=== PATIENT | male | born 1935 | race Caucasian/White ===

== ENCOUNTER 2020-09-08 17:11 | Observation (INO) ==
[2020-09-08] MEDS ORDERED: Acetaminophen 325 MG TABLET PO PRN (19:42)
[2020-09-08] MEDS ORDERED: Naloxone 0.4 MG/ML INJ IVP PRN (19:42)
[2020-09-08] MEDS ORDERED: Ondansetron ODT 4 MG TAB.RAPDIS SL PRN (19:42)
[2020-09-08] MEDS ORDERED: Perflutren Lipid Microsphere 1.3 ML in 0.9 % Sodium Chloride 8.7 ML IVP PRN (19:47)
[2020-09-08] MEDS ORDERED: Furosemide 40 MG/4 ML VIAL IVP ONE (19:47)
[2020-09-08] MEDS ORDERED: D5% in Water 1,000 ML IVC PRN (19:49)
[2020-09-08] MEDS ORDERED: *HR* Dextrose 50 % in Water (Vial) 50 ML VIAL IVP PRN (19:49)
[2020-09-08] MEDS ORDERED: Dextrose Gel 15 GM/37.5 ML TUBE PO PRN ×2 (19:49)
[2020-09-08] MEDS: Insulin LISPRO 300 UNITS/3 ML VIAL SUBQ SCH ×2 (21:05)
[2020-09-08 23:39] LABS: Bacteria,Urine Few per hpf (None-Few); Bilirubin,Urine Negative (Negative); Blood,Urine Negative (Negative); Clarity,Urine Clear (Clear); Color,Urine Colorless (Yellow); Glucose,Urine (UA) Normal (Normal); Hyaline Casts,Urine Few per lpf (None Seen); Ketones,Urine Negative (Negative); Leukocyte Esterase,Urine Trace (Negative); Nitrite,Urine Negative (Negative); Protein,Urine Negative (Neg-Trace); RBC,Urine 0-3 per hpf (0-3); Specific Gravity,Urine 1.008 (1.010-1.025); Urobilinogen,Urine Normal (Normal); WBC,Urine 0-3 per hpf (0-3)
[2020-09-09 02:13] LABS: Basophils % 0.2 %; Hematocrit 46.7 % (37.5-50.1); Hemoglobin 14.8 g/dL (12.9-16.9); Immature Granulocytes % 0.9 % (0-4); Lymphocytes # 0.8 K/mcL (0.6-4.6); Lymphocytes % 5.8 %; Mean Corpuscular HGB Conc 31.7 g/dL (31.6-35.5); Mean Corpuscular Hemoglobin 29.1 pg (28.0-33.3); Mean Corpuscular Volume 91.7 fL (83.0-100.0); Mean Platelet Volume 11.3 fL (9.4-12.4); Monocytes # 0.1 K/mcL (0.0-1.3); Monocytes % 0.5 %; Neutrophils # 13.4 K/mcL (1.6-8.9); Platelet Count 178 K/mcL (140-400); Red Blood Count 5.09 M/mcL (4.19-5.50); Red Cell Distribution Width 17.3 % (11.5-14.5); Segmented Neutrophils % 92.6 %; White Blood Count 14.4 K/mcL (4.3-11.1)
[2020-09-09 02:19] LABS: INR 1.2
[2020-09-09 02:27] LABS: Estimated Average Glucose 151 mg/dl; Hemoglobin A1C 6.9 %
[2020-09-09 03:34] LABS: Albumin 3.6 g/dL (3.5-5.7); Albumin/Globulin Ratio 1.1 (1.1-2.2); Bilirubin,Total 0.9 mg/dL (0.3-1.0); Chol/HDL Ratio 2.7 (0-4.9); Globulin 3.2 g/dL (2.4-3.5); Magnesium 2.2 mg/dL (1.6-2.6); Phosphorous 5.3 mg/dL (2.7-4.5); Potassium 4.8 mEq/L (3.5-5.1); Thyroid Stimulating Hormone 1.08 mcIU/mL (0.340-5.600); Total Protein 6.8 g/dL (6.4-8.9)
[2020-09-09] MEDS: Insulin LISPRO 300 UNITS/3 ML VIAL SUBQ SCH ×4 (07:42→20:23)
[2020-09-09] MEDS: Furosemide 40 MG/4 ML VIAL IVP SCH (16:44)
[2020-09-09] MEDS: Doxycycline 100 MG CAPSULE PO SCH (20:23)
[2020-09-09] MEDS: Lactobacillus 1 EACH CAP.SPRINK PO SCH (20:23)
[2020-09-10 06:46] LABS: Basophils % 0.1 %; Hematocrit 47.3 % (37.5-50.1); Hemoglobin 14.8 g/dL (12.9-16.9); Immature Granulocytes % 1.3 % (0-4); Lymphocytes # 1.6 K/mcL (0.6-4.6); Lymphocytes % 6.5 %; Mean Corpuscular HGB Conc 31.3 g/dL (31.6-35.5); Mean Corpuscular Hemoglobin 28.2 pg (28.0-33.3); Mean Corpuscular Volume 90.1 fL (83.0-100.0); Monocytes # 1.7 K/mcL (0.0-1.3); Monocytes % 6.9 %; Neutrophils # 20.5 K/mcL (1.6-8.9); Platelet Count 243 K/mcL (140-400); Red Blood Count 5.25 M/mcL (4.19-5.50); Red Cell Distribution Width 17.6 % (11.5-14.5); Segmented Neutrophils % 85.2 %
[2020-09-10 07:06] LABS: Calcium 9.2 mg/dL (8.6-10.3); Potassium 4.1 mEq/L (3.5-5.1)
[2020-09-10 07:31] VITALS: BP 144/82
[2020-09-10] MEDS: Insulin LISPRO 300 UNITS/3 ML VIAL SUBQ SCH (08:03)
[2020-09-10] MEDS: Lactobacillus 1 EACH CAP.SPRINK PO SCH (08:08)
[2020-09-10] MEDS: Furosemide 40 MG/4 ML VIAL IVP SCH (08:08)
[2020-09-10] MEDS: Doxycycline 100 MG CAPSULE PO SCH (08:08)
[2020-09-10 08:50] LABS: Basophils # 0.1 K/mcL (0.0-0.2); Basophils % 0.2 %; Hematocrit 49.4 % (37.5-50.1); Hemoglobin 15.5 g/dL (12.9-16.9); Immature Granulocytes % 1.2 % (0-4); Lymphocytes # 1.6 K/mcL (0.6-4.6); Lymphocytes % 6.6 %; Mean Corpuscular HGB Conc 31.4 g/dL (31.6-35.5); Mean Corpuscular Hemoglobin 28.4 pg (28.0-33.3); Mean Corpuscular Volume 90.5 fL (83.0-100.0); Mean Platelet Volume 11.4 fL (9.4-12.4); Monocytes # 1.8 K/mcL (0.0-1.3); Monocytes % 7.4 %; Neutrophils # 20.5 K/mcL (1.6-8.9); Platelet Count 198 K/mcL (140-400); Red Blood Count 5.46 M/mcL (4.19-5.50); Red Cell Distribution Width 17.9 % (11.5-14.5); Segmented Neutrophils % 84.6 %; White Blood Count 24.3 K/mcL (4.3-11.1)
[2020-09-10] MEDS ORDERED: predniSONE 5 MG TABLET PO SCH (09:00)
[2020-09-10] MEDS ORDERED: amLODIPine 5 MG TABLET PO SCH (09:00)
== END 2020-09-10 09:47 | disposition left against medical advice (07) ==
LOC: 3ANU → SUATTDRO 19:16
PROVIDERS: ADMIT Internal Medicine; ATTEND Family Medicine